=== PATIENT | male | born 1990 | race Caucasian/White ===

== ENCOUNTER → 2016-09-29 | Outpatient (CLI) | payer OTHER ==
[~2016-09-29] MED LIST: ADDERALL20 MG PO; CYMBALTA 60MG60 MG PO; HUMALOG100 U/ML; LANTUS100 U/ML SQ; LEVEMIR100 U/ML SQ; PHENERGAN 25 TA25 MG PO; PROZAC 20MG20 MG PO; VITAMIN D1000 IU PO; ZOFRAN 4MG T4 MG/TAB PO
== END ==
LOC: BHSO 15:16
DX: F90.0 Attention-deficit hyperactivity disorder, predominantly inattentive type (principal)

== ENCOUNTER → 2016-12-27 | Outpatient (CLI) | payer OTHER | LOC: BHSO 15:37 | DX: F90.0 Attention-deficit hyperactivity disorder, predominantly inattentive type (principal) ==

== ENCOUNTER → 2017-05-31 | Outpatient (CLI) | payer OTHER | LOC: BHSO 07:58 | DX: F90.0 Attention-deficit hyperactivity disorder, predominantly inattentive type (principal) ==

== ENCOUNTER → 2018-04-26 | Outpatient (CLI) | payer OTHER | LOC: BHSO 10:34 | DX: F90.0 Attention-deficit hyperactivity disorder, predominantly inattentive type (principal) | CPT/HCPCS: G0463 ==